=== PATIENT | male | born 1955 | race Hispanic/Latino ===

== ENCOUNTER 2019-06-16 08:39 | Emergency (ER) | payer OTHER ==
[~2019-06-16 08:39] MED LIST: ASPI-1005 PO; ATOR10 PO; LISI-617 PO; METF-444 PO; METO-409 PO; TYL3 PO
[2019-06-16 09:49] LABS: POTASSIUM 3.8 mmol/L (3.5-5.1)
[2019-06-16 09:53] LABS: ALBUMIN 4.1 g/dL (3.5-5.0); BILIRUBIN,TOTAL 0.7 mg/dL (0.2-1.0); TOTAL PROTEIN, SERUM 7.5 g/dL (6.0-8.3)
[2019-06-16] MEDS ORDERED: DIPHENOXYLATE HCL/ATROPINE 2.5/0.025 MG TAB PO ONE (10:12)
== END 2019-06-16 10:22 | disposition home or self-care (01) ==
LOC: EDH 08:39
DX: E86.9 Volume depletion, unspecified (principal); R19.7 Diarrhea, unspecified; Z88.0 Allergy status to penicillin
CPT/HCPCS: 36415; 80053; 83690

== ENCOUNTER 2020-08-07 23:57 | Emergency (ER) | payer OTHER, SELFPAY | END 2020-08-08 01:37 | disposition home or self-care (01) | LOC: EDH 23:57 | DX: M79.604 Pain in right leg (principal); M79.605 Pain in left leg; E11.9 Type 2 diabetes mellitus without complications; I25.2 Old myocardial infarction; Z88.0 Allergy status to penicillin | CPT/HCPCS: 99281 ==

== ENCOUNTER 2022-09-29 06:52 | Day surgery (SDC) | payer OTHER ==
[2022-09-26 09:36] LABS: BASOPHILS % (AUTO) 0.7 % (0.0-5.0); HEMATOCRIT 40.9 % (42-54); LYMPHOCYTES % (AUTO) 26.9 % (21.0-51.0); MEAN CORPUSCULAR HEMOGLOBIN 30.2 pg (27.0-33.0); MEAN CORPUSCULAR HGB CONC 34.2 g/dL (32.0-36.0); MEAN CORPUSCULAR VOLUME 88.1 fL (79-99); MONOCYTES % (AUTO) 10.2 % (3.0-13.0); PLATELET COUNT (AUTO) 142 K/uL (130-400); RED BLOOD CELL COUNT(AUTO) 4.64 MIL/uL (4.50-6.20); RED CELL DISTRIBUTION WIDTH 12.6 % (11.0-15.5)
[2022-09-26 09:49] LABS: APPEARANCE,URINE CLEAR (CLEAR); BILIRUBIN,URINE NEGATIVE (NEGATIVE); COLOR,URINE LIGHT-YELLOW (YELLOW); GLUCOSE, URINE (UA) NEGATIVE (NEGATIVE); KETONES,URINE NEGATIVE (NEGATIVE); LEUKOCYTE ESTERASE ,URINE NEGATIVE Leu/uL (NEGATIVE); NITRATE,URINE NEGATIVE (NEGATIVE); OCCULT BLOOD,URINE NEGATIVE (NEGATIVE); PROTEIN,URINE NEGATIVE (NEGATIVE); UROBILINOGEN,URINE 0.2 mg/dL (0.2-1.0)
[2022-09-26 09:50] LABS: POTASSIUM 4.5 mmol/L (3.5-5.1)
[2022-09-26 09:54] LABS: PROTHROMBIN TIME 10.9 SEC (9.6-11.6)
[2022-09-26 10:13] LABS: B-TYPE NATRIURETIC PEPTIDE 60 pg/mL (0-100)
[2022-09-26 12:54] VITALS: BP 146/69
[~2022-09-29] VITALS: Ht 175.3 cm; Wt 92.7 kg
[2022-09-29] VITALS (13 sets, daily range): BP systolic 124–140; BP diastolic 61–80
[~2022-09-29 06:52] MED LIST changes: +0.9% NACL 500ML IV.SOLN 500 ML IV SCH; -ASPI-1005 PO; +ASPI-1443 PO; -ATOR10 PO; -LISI-617 PO; -METF-444 PO; +METO-391 PO; -METO-409 PO; -TYL3 PO
[2022-09-29] MEDS ORDERED: 0.9%NACL 1000ML 1,000 ML IV ONE (07:13)
[2022-09-29] MEDS ORDERED: FENTANYL CITRATE PF 50 MCG/1 ML 2ML VIAL ONE (08:29)
[2022-09-29] MEDS ORDERED: NITROGLYCERIN 50MG VIAL ONE (08:29)
[2022-09-29] MEDS ORDERED: IODIXANOL 320 MG/ML 100 ML VIAL ONE (08:29)
[2022-09-29] MEDS ORDERED: LIDOCAINE HCL 1% 20 ML VIAL ONE (08:29)
[2022-09-29] MEDS ORDERED: HEPARIN 10,000 UNIT/10ML (1,000 UNIT/ML) VIAL ONE (08:29)
[2022-09-29] MEDS ORDERED: MIDAZOLAM HCL 1 MG/ML 2ML VIAL ONE ×2 (08:29→08:59)
[2022-09-29] MEDS ORDERED: GLUCAGON 1MG KIT 1 MG ML IM PRN (10:00)
[2022-09-29] MEDS ORDERED: DEXTROSE 50%-WATER 50 ML DISP.SYRIN IV PRN (10:00)
[2022-09-29] MEDS ORDERED: 0.9%NACL 1000ML 1,000 ML IV SCH (10:00)
== END 2022-09-29 16:10 | disposition home or self-care (01) ==
LOC: DAH 06:52
PROVIDERS: ATTEND Internal Medicine Cardiovascular Disease
DX: I70.213 Atherosclerosis of native arteries of extremities with intermittent claudication, bilateral legs (principal); E11.51 Type 2 diabetes mellitus with diabetic peripheral angiopathy without gangrene; I70.92 Chronic total occlusion of artery of the extremities; I10 Essential (primary) hypertension; I25.10 Atherosclerotic heart disease of native coronary artery without angina pectoris; I87.2 Venous insufficiency (chronic) (peripheral); E03.9 Hypothyroidism, unspecified; E78.5 Hyperlipidemia, unspecified; E66.3 Overweight; I25.2 Old myocardial infarction; Z79.01 Long term (current) use of anticoagulants; Z79.899 Other long term (current) drug therapy; Z79.82 Long term (current) use of aspirin; Z98.890 Other specified postprocedural states; Z82.49 Family history of ischemic heart disease and other diseases of the circulatory system; Z88.0 Allergy status to penicillin; Z68.28 Body mass index [BMI] 28.0-28.9, adult
CPT/HCPCS: 80048; 83880; 85025; 85610; 85730; 81003; 36415; 71045; 93005; 37224; 75625; 75716; 75774; 82948 ×2; C1769 ×2; C1894 ×3; C1760; C1893; C1887; J3010; J7030; J1644 ×2; J2250 ×2; J3490; Q9967; A4215; A4222; A4221; A4663; A4216; A4606; A4223 ×3; 75630; 96360; 96361; 99156; 99157

== ENCOUNTER → 2023-01-02 | Outpatient (CLI) | payer OTHER ==
[~2023-01-02] MED LIST changes: -0.9% NACL 500ML IV.SOLN 500 ML IV SCH
== END | disposition home or self-care (01) ==
LOC: SHCH 12:36
PROVIDERS: ATTEND Internal Medicine Cardiovascular Disease
DX: I87.2 Venous insufficiency (chronic) (peripheral) (principal); I25.10 Atherosclerotic heart disease of native coronary artery without angina pectoris; R09.89 Other specified symptoms and signs involving the circulatory and respiratory systems
CPT/HCPCS: 93880; 93970

== ENCOUNTER → 2023-02-07 | Outpatient (CLI) | payer OTHER ==
[2023-02-07 12:35] LABS: BASOPHILS % (AUTO) 1.4 % (0.0-5.0); EOSINOPHILS % (AUTO) 3.7 % (0.0-8.0); HEMATOCRIT 38.6 % (42-54); LYMPHOCYTES % (AUTO) 19.8 % (21.0-51.0); MEAN CORPUSCULAR HEMOGLOBIN 29.8 pg (27.0-33.0); MEAN CORPUSCULAR HGB CONC 34.5 g/dL (32.0-36.0); MEAN CORPUSCULAR VOLUME 86.4 fL (79-99); MONOCYTES % (AUTO) 8.4 % (3.0-13.0); NEUTROPHILS % (AUTO) 66.5 % (40.0-77.0); PLATELET COUNT (AUTO) 173 K/uL (130-400); RED BLOOD CELL COUNT(AUTO) 4.47 MIL/uL (4.50-6.20); RED CELL DISTRIBUTION WIDTH 12.4 % (11.0-15.5); WHITE BLOOD COUNT (AUTO) 4.3 K/uL (4.8-10.8)
[2023-02-07 12:49] LABS: POTASSIUM 3.9 mmol/L (3.5-5.1)
[2023-02-07 12:51] LABS: INR 1.05 (0.85-1.15); PROTHROMBIN TIME 11.4 SEC (9.6-11.6)
== END | disposition home or self-care (01) ==
LOC: LAB 11:21
PROVIDERS: ATTEND Internal Medicine Cardiovascular Disease
DX: I87.1 Compression of vein (principal); I10 Essential (primary) hypertension; I25.10 Atherosclerotic heart disease of native coronary artery without angina pectoris; I87.2 Venous insufficiency (chronic) (peripheral); I25.2 Old myocardial infarction; I73.9 Peripheral vascular disease, unspecified; E03.9 Hypothyroidism, unspecified; Z95.1 Presence of aortocoronary bypass graft; Z79.01 Long term (current) use of anticoagulants; Z79.899 Other long term (current) drug therapy
CPT/HCPCS: 36415; 80048; 85025; 85610; 85730

== ENCOUNTER → 2023-04-09 | Outpatient (CLI) | payer OTHER ==
[2023-04-09 12:19] LABS: INR 1.01 (0.85-1.15)
[2023-04-09 12:20] LABS: POTASSIUM 4.4 mmol/L (3.5-5.1)
[2023-04-09 12:28] LABS: BASOPHILS % (AUTO) 0.9 % (0.0-5.0); EOSINOPHILS % (AUTO) 1.6 % (0.0-8.0); HEMATOCRIT 39.4 % (42-54); MEAN CORPUSCULAR HEMOGLOBIN 29.6 pg (27.0-33.0); MEAN CORPUSCULAR VOLUME 87.2 fL (79-99); MONOCYTES % (AUTO) 8.6 % (3.0-13.0); NEUTROPHILS % (AUTO) 68.4 % (40.0-77.0); PLATELET COUNT (AUTO) 154 K/uL (130-400); RED BLOOD CELL COUNT(AUTO) 4.52 MIL/uL (4.50-6.20); RED CELL DISTRIBUTION WIDTH 13.2 % (11.0-15.5); WHITE BLOOD COUNT (AUTO) 4.4 K/uL (4.8-10.8)
== END | disposition home or self-care (01) ==
LOC: LAB 09:51
PROVIDERS: ATTEND Internal Medicine Cardiovascular Disease
DX: I25.10 Atherosclerotic heart disease of native coronary artery without angina pectoris (principal); I87.1 Compression of vein; I48.91 Unspecified atrial fibrillation
CPT/HCPCS: 36415; 80048; 85025; 85610; 85730

== ENCOUNTER → 2025-01-19 | Outpatient (CLI) | payer OTHER ==
--- NOTE | 2025-01-25 13:14 | HMCSR ---
APPROVED REPORT EXAM: Two-dimensional and M-mode echocardiogram with Doppler and color Doppler. INDICATION ICD: R06.09 Other forms of dyspnea 2D Dimensions RVDd4.3 cmLVEF(%)36.6 (>50%)LVED Vol(simp.)164.0 mL IVSd1.0 (0.7-1.1cm)FS(%)18 %LVES Vol(simp.)93.0 mL LVDd5.7 (3.8-5.6cm)Ao Root(2D)3.7 (2.0-3.7cm)LVEF(%, simp.)43 % PWd1.0 (0.7-1.1cm)LVOT diam2.3 (1.8-2.4cm)LA ESV INDEX (BP)35.11 mL/m2 LVDs4.7 (2.5-4.0cm)IVC diam1.9 cm Aortic Valve AoV Vmax1.2 m/Demetrius Peak GR5.7 mmHgLVOT Vmax0.8 m/s AoV VTI0.2 mAo Mean GR3.5 mmHgLVOT VTI0.19 m YELENA (VMAX)3.2 cm2Al P1/4S3894 msAVA (VTI) 3.2 cm2 Mitral Valve MV E Vmax56.8 cm/sDECEL Sqym495 ms MV A Vmax69.4 cm/sP 1/2 T63 ms E/A ratio0.8MVA (PHT)3.5 cm2 MR Max PG94 mmHg TDI E/E' Medial7.4E/E' Swjprnc91.1 Pulmonary Valve PV Vmax0.8 m/sPV VTI0.18 mPV Mean GR2 mmHg PV Peak GR2.8 mmHgPI End Chelsie. Asael 1.2 cm/s Tricuspid Valve TR Vmax2.1 m/sRAP (EST) 8 xjBuIHJY42.4 mmHg TR Peak GR18.4 mmHg Left Ventricle The left ventricle is mildly dilated. Akinesis of the mid and distal anteroseptum and severe hypokine sis of the mid and distal anterior wall consistent with prior infarct Akinetic apex There is normal l eft ventricular wall thickness. LVEF is 40%. Grade 1 diastolic dysfunction Right Ventricle The right ventricle is mildly dilated. The right ventricular systolic function is normal. Atria The left atrium is mildly dilated. Aortic Valve Aortic valve is trileaflet. Aortic valve leaflets are sclerotic but open well. Trace aortic regurgita tion. There is no aortic valvular stenosis. Mitral Valve Mitral valve leaflets are mildly sclerotic but open well. Mitral regurgitation is mild to moderate. T here is no mitral valve stenosis. Tricuspid Valve The tricuspid valve leaflets appear normal. There is trace to mild tricuspid regurgitation. Pulmonic Valve The pulmonic valve leaflets are thin and pliable; valve motion is normal. There is trace to mild valv ular regurgitation. Great Vessels The aortic root is normal in size. IVC is dilated and collapses >50% with inspiration. Pericardium No pericardial effusion. Conclusion LVEF is 40%. Grade 1 diastolic dysfunction Mitral regurgitation is mild to moderate. Trace aortic regurgitation. There is trace to mild tricuspid regurgitation. No pericardial effusion. The aortic root is normal in size. Akinesis of the mid and distal anteroseptum and severe hypokinesis of the mid and distal anterior wal l consistent with prior infarct Akinetic apex
== END | disposition home or self-care (01) ==
LOC: SHCH 11:02
PROVIDERS: ATTEND Internal Medicine Cardiovascular Disease
DX: I08.3 Combined rheumatic disorders of mitral, aortic and tricuspid valves (principal); R06.09 Other forms of dyspnea
CPT/HCPCS: 93306

== ENCOUNTER → 2025-03-09 | Outpatient (CLI) | payer OTHER ==
[2025-03-09 13:34] LABS: POTASSIUM 4.1 mmol/L (3.5-5.1)
== END | disposition home or self-care (01) ==
LOC: LAB 12:20
PROVIDERS: ATTEND Internal Medicine Cardiovascular Disease
DX: I25.5 Ischemic cardiomyopathy (principal)
CPT/HCPCS: 36415; 80048